=== PATIENT | female | born 1955 | race Caucasian/White ===

== ENCOUNTER 2021-04-12 14:37 | Inpatient (IN) ==
[2021-04-12] MEDS ORDERED: Morphine 2 MG/ML SYRINGE IV PRN (19:49)
[2021-04-12] MEDS: Morphine 2 MG/ML SYRINGE IV PRN ×2 (20:10→22:06)
[2021-04-12 20:37] LABS: ABS Eosinophils 0.1 10^3/ul (0-0.6); ABS Monocytes 0.6 10^3/ul (0-0.8); ABS Neutrophils 5.6 10^3/ul (1.5-7.7); Eosinophil % 1.5 %; Hematocrit 41 % (35-47); Lymphocyte % 13.7 %; Mean Corpuscular HGB Conc 34 g/dL (31-36); Mean Corpuscular Hemoglobin 32 pg (27-31); Mean Corpuscular Volume 94 fL (80-97); Mean Platelet Volume 7.7 fL (7.4-10.4); Nucleated Red Blood Cells % 0.1; Platelet Count 148 10^3/uL (150-450); Red Blood Count 4.38 10^6 /uL (3.70-4.87); Red Cell Distribution Width 13 % (10-15); White Blood Count 7.3 10^3/uL (3.5-10.8)
[2021-04-12] MEDS: Ondansetron 4 mg VIAL 2 MG/ML 2 ml VIAL IV PRN (20:54)
[2021-04-12 21:08] LABS: Albumin 4.2 g/dL (3.2-5.2); Albumin/Globulin Ratio 1.7 (1-3); Calcium 9.2 mg/dL (8.6-10.3); Globulin 2.5 g/dL (2-4); Potassium 3.8 mmol/L (3.5-5.0); Total Bilirubin 0.6 mg/dL (0.2-1.0); Total Protein 6.7 g/dL (6.4-8.9); eGFR CKD-EPI 94.7 (>60)
[2021-04-12] MEDS: Cholecalciferol (VIT D3) 1,000 unit TAB PO SCH (21:19)
[2021-04-12] MEDS ORDERED: Heparin 5000 UNITS/ML 1 mL VIAL SUBCUT ONE (22:20)
[2021-04-13 01:25] LABS: Rapid COVID-19 Molecular Undetected (Undetected)
[2021-04-13 01:36] LABS: Urine Appearance Clear; Urine Bilirubin Negative (Negative); Urine Blood 3+ (Negative); Urine Color Yellow; Urine Glucose Negative (Negative); Urine Ketones Negative (Negative); Urine Nitrite Negative (Negative); Urine Protein Negative (Negative); Urine Specific Gravity 1.012 (1.002-1.030); Urine Urobilinogen Negative (Negative)
[2021-04-13 01:41] LABS: Urine Bacteria Absent (Absent); Urine Red Blood Cell 3+(>10/hpf) (Absent); Urine White Blood Cell Trace(0-5/hpf) (Absent)
[2021-04-13 05:50] LABS: ABS Eosinophils 0.2 10^3/ul (0-0.6); ABS Lymphocytes 0.8 10^3/ul (1.0-4.8); ABS Monocytes 0.5 10^3/ul (0-0.8); ABS Neutrophils 5.3 10^3/ul (1.5-7.7); Eosinophil % 3.1 %; Hematocrit 42 % (35-47); Hemoglobin 14.2 g/dL (12.0-16.0); Lymphocyte % 12.1 %; Mean Corpuscular HGB Conc 34 g/dL (31-36); Mean Corpuscular Hemoglobin 32 pg (27-31); Mean Corpuscular Volume 94 fL (80-97); Mean Platelet Volume 8.2 fL (7.4-10.4); Platelet Count 149 10^3/uL (150-450); Red Blood Count 4.44 10^6 /uL (3.70-4.87); Red Cell Distribution Width 13 % (10-15); White Blood Count 6.9 10^3/uL (3.5-10.8)
[2021-04-13] MEDS: LEVOTHYROXINE 125 MCG PO SCH ×2 (05:54→09:15)
[2021-04-13 05:58] LABS: INR 1.06 (0.86-1.15)
[2021-04-13 06:07] LABS: Calcium 9.2 mg/dL (8.6-10.3); Potassium 3.2 mmol/L (3.5-5.0); eGFR CKD-EPI 94.7 (>60)
[2021-04-13] MEDS ORDERED: Heparin 5000 UNITS/ML 1 mL VIAL SUBCUT ONE (07:00)
[2021-04-13] MEDS: Morphine 2 MG/ML SYRINGE IV PRN ×3 (07:05→13:16)
[2021-04-13] MEDS: Ondansetron 4 mg VIAL 2 MG/ML 2 ml VIAL IV PRN ×2 (07:06→13:16)
[2021-04-13] MEDS: Cholecalciferol (VIT D3) 1,000 unit TAB PO SCH ×2 (07:21→08:41)
[2021-04-13] MEDS ORDERED: Senna TAB 8.6 mg TAB PO PRN (08:22)
[2021-04-13] MEDS: Magnesium Hydroxide LIQ 30 ML UDC PO SCH ×2 (08:41→22:57)
[2021-04-13] MEDS ORDERED: Lactated Ringers 1000 ml BAG 1,000 ML IV SCH ×2 (09:00→11:00)
[2021-04-13] MEDS: KCL 10 MEQ/50 ML IVPREMIX 10 MEQ/50 ML BAG IV SCH ×3 (09:15→12:20)
[2021-04-13] MEDS ORDERED: ceFAZolin 2 GM PREMIX 2 GM/50 ML BAG IVPB ONE ×2 (10:00→16:30)
[2021-04-13] MEDS ORDERED: Buffered Lidocaine 1% SYRIN 1 ml INTRADERM ONE (10:41)
[2021-04-13 13:21] LABS: Vitamin D Total 25(OH) 33.7 ng/mL (20-50)
[2021-04-13] MEDS ORDERED: Morphine 10 MG/ML VIAL (1 ml) IV PRN (13:39)
[2021-04-13] MEDS ORDERED: Morphine 2 MG/ML SYRINGE ONE (14:02)
[2021-04-13] MEDS ORDERED: ceFAZolin 2 GM PREMIX 2 GM/50 ML BAG ONE (15:29)
[2021-04-13] MEDS ORDERED: Rocuronium 50 mg VIAL 10 mg/ml 5 ml VIAL (50 mg) ONE (18:10)
[2021-04-13] MEDS ORDERED: Midazolam 2 mg/2 ml VIAL 1 mg/ml 2 ml VIAL (2 mg) ONE (18:10)
[2021-04-13] MEDS ORDERED: Propofol 10 MG/ML 20 ML BTL ONE (18:11)
[2021-04-13] MEDS ORDERED: Lidocaine 2% PF 5 ML VIAL ONE (18:11)
[2021-04-13] MEDS ORDERED: Calcium CHLORIDE 10% SYRINGE 1 GM/10 ML ONE (19:36)
[2021-04-13] MEDS ORDERED: LACTATED RINGERS 1000 ML BAG IV SCH (23:00)
[2021-04-14] MEDS: ceFAZolin 1 GM Q8H (ADVAN) IVPB SCH ×3 (02:31→21:04)
[2021-04-14] MEDS: Ondansetron 4 mg VIAL 2 MG/ML 2 ml VIAL IV PRN ×3 (02:33→14:49)
[2021-04-14 05:52] LABS: ABS Lymphocytes 0.4 10^3/ul (1.0-4.8); ABS Monocytes 1.4 10^3/ul (0-0.8); ABS Neutrophils 15.8 10^3/ul (1.5-7.7); Hematocrit 42 % (35-47); Hemoglobin 13.7 g/dL (12.0-16.0); Lymphocyte % 2.4 %; Mean Corpuscular HGB Conc 33 g/dL (31-36); Mean Corpuscular Hemoglobin 32 pg (27-31); Mean Corpuscular Volume 96 fL (80-97); Mean Platelet Volume 8.2 fL (7.4-10.4); Nucleated Red Blood Cells % 0.1; Platelet Count 116 10^3/uL (150-450); Red Blood Count 4.33 10^6 /uL (3.70-4.87); Red Cell Distribution Width 12 % (10-15); White Blood Count 17.6 10^3/uL (3.5-10.8)
[2021-04-14 06:07] LABS: Calcium 9.7 mg/dL (8.6-10.3); Magnesium 1.8 mg/dL (1.9-2.7); Potassium 4.5 mmol/L (3.5-5.0)
[2021-04-14] MEDS: LEVOTHYROXINE 125 MCG PO SCH (06:07)
[2021-04-14 06:12] LABS: eGFR CKD-EPI 35.7 (>60)
[2021-04-14] MEDS ORDERED: Lactated Ringers 1000 ml BAG 1,000 ML IV ONE ×2 (06:56→06:57)
[2021-04-14] MEDS ORDERED: Magnesium Sulfate IV 3 GM in NS 0.9% 100 ml BAG 100 ML IVPB ONE (06:58)
[2021-04-14] MEDS: Cholecalciferol (VIT D3) 1,000 unit TAB PO SCH (09:34)
[2021-04-14] MEDS: Magnesium Hydroxide LIQ 30 ML UDC PO SCH ×2 (09:39→21:05)
[2021-04-14] MEDS ORDERED: HYDROcodone/ACETAMIN 5/325 mg TAB PO PRN (10:22)
[2021-04-14 14:51] LABS: Calcium 9.1 mg/dL (8.6-10.3); Magnesium 2.8 mg/dL (1.9-2.7); Potassium 3.9 mmol/L (3.5-5.0); eGFR CKD-EPI 28.6 (>60)
[2021-04-14] MEDS ORDERED: Scopolamine PATCH Remove NOTE PATCH OFF ONE (17:41)
[2021-04-14 19:20] LABS: Urine Appearance Cloudy; Urine Bilirubin Negative (Negative); Urine Blood 1+ (Negative); Urine Color Yellow; Urine Glucose Negative (Negative); Urine Ketones Negative (Negative); Urine Nitrite Negative (Negative); Urine Protein Negative (Negative); Urine Specific Gravity 1.013 (1.002-1.030); Urine Urobilinogen Negative (Negative)
[2021-04-14 19:33] LABS: Urine Bacteria Absent (Absent); Urine Red Blood Cell Trace(0-2/hpf) (Absent); Urine Squamous Epithelial Cell Present (Absent); Urine White Blood Cell Trace(0-5/hpf) (Absent)
[2021-04-14] MEDS: Senna TAB 8.6 mg TAB PO SCH (21:06)
[2021-04-15 05:34] LABS: ABS Lymphocytes 0.5 10^3/ul (1.0-4.8); ABS Monocytes 0.3 10^3/ul (0-0.8); ABS Neutrophils 6.5 10^3/ul (1.5-7.7); Eosinophil % 0.6 %; Hematocrit 35 % (35-47); Hemoglobin 11.9 g/dL (12.0-16.0); Lymphocyte % 7.4 %; Mean Corpuscular HGB Conc 34 g/dL (31-36); Mean Corpuscular Hemoglobin 32 pg (27-31); Mean Corpuscular Volume 95 fL (80-97); Mean Platelet Volume 9.1 fL (7.4-10.4); Nucleated Red Blood Cells % 0.1; Platelet Count 86 10^3/uL (150-450); Red Blood Count 3.71 10^6 /uL (3.70-4.87); Red Cell Distribution Width 13 % (10-15); White Blood Count 7.4 10^3/uL (3.5-10.8)
[2021-04-15 05:52] LABS: Calcium 8.6 mg/dL (8.6-10.3); Potassium 3.6 mmol/L (3.5-5.0); eGFR CKD-EPI 26.7 (>60)
[2021-04-15] MEDS: LEVOTHYROXINE 125 MCG PO SCH (06:22)
[2021-04-15] MEDS ORDERED: Lactated Ringers 500 ml BAG 500 ML IV ONE (06:22)
[2021-04-15] MEDS: Ondansetron 4 mg VIAL 2 MG/ML 2 ml VIAL IV PRN ×2 (06:37→20:05)
[2021-04-15] MEDS ORDERED: Lactated Ringers 1000 ml BAG 1,000 ML IV SCH ×2 (07:00→15:00)
[2021-04-15 07:09] LABS: Folate 17.43 ng/mL (5.90-24.80)
[2021-04-15] MEDS: Cholecalciferol (VIT D3) 1,000 unit TAB PO SCH (08:15)
[2021-04-15] MEDS: Polyethylene Glycol 3350 17 GM PACKET PO SCH (08:16)
[2021-04-15] MEDS: Magnesium Hydroxide LIQ 30 ML UDC PO SCH ×2 (08:16→21:44)
[2021-04-15] MEDS: Calcium Citrate 200 mg TAB PO SCH ×2 (08:17→21:44)
[2021-04-15 14:25] LABS: Calcium 8.3 mg/dL (8.6-10.3); Potassium 3.8 mmol/L (3.5-5.0)
[2021-04-15] MEDS: Senna TAB 8.6 mg TAB PO SCH (21:44)
[2021-04-16 04:46] LABS: ABS Eosinophils 0.1 10^3/ul (0-0.6); ABS Lymphocytes 0.4 10^3/ul (1.0-4.8); ABS Monocytes 0.3 10^3/ul (0-0.8); ABS Neutrophils 4.3 10^3/ul (1.5-7.7); Eosinophil % 1.3 %; Hematocrit 30 % (35-47); Hemoglobin 10.3 g/dL (12.0-16.0); Lymphocyte % 7.2 %; Mean Corpuscular HGB Conc 34 g/dL (31-36); Mean Corpuscular Hemoglobin 32 pg (27-31); Mean Corpuscular Volume 94 fL (80-97); Mean Platelet Volume 8.5 fL (7.4-10.4); Nucleated Red Blood Cells % 0.1; Platelet Count 54 10^3/uL (150-450); Red Blood Count 3.22 10^6 /uL (3.70-4.87); Red Cell Distribution Width 13 % (10-15); White Blood Count 5.1 10^3/uL (3.5-10.8)
[2021-04-16 05:00] LABS: Anion Gap 4 mmol/L (2-11); Blood Urea Nitrogen 41 mg/dL (6-24); CO2 Carbon Dioxide 28 mmol/L (22-32); Calcium 8.8 mg/dL (8.6-10.3); Chloride 104 mmol/L (101-111); Glucose 98 mg/dL (70-100); Magnesium 2.4 mg/dL (1.9-2.7); Potassium 3.8 mmol/L (3.5-5.0); Sodium 136 mmol/L (135-145); eGFR CKD-EPI 37.7 (>60)
[2021-04-16] MEDS: LEVOTHYROXINE 125 MCG PO SCH (06:39)
[2021-04-16] MEDS ORDERED: Lactated Ringers 1000 ml BAG 1,000 ML IV ONE ×2 (08:02→18:30)
[2021-04-16] MEDS: Ondansetron ODT 4 mg TAB 4 MG TAB SL SCH ×4 (08:29→21:05)
[2021-04-16] MEDS: Cholecalciferol (VIT D3) 1,000 unit TAB PO SCH (08:29)
[2021-04-16] MEDS: Calcium Citrate 200 mg TAB PO SCH ×2 (08:29→21:05)
[2021-04-16] MEDS: Magnesium Hydroxide LIQ 30 ML UDC PO SCH (08:30)
[2021-04-16] MEDS: Polyethylene Glycol 3350 17 GM PACKET PO SCH (08:30)
[2021-04-16] MEDS ORDERED: Scopolamine PATCH Remove NOTE PATCH OFF SCH (10:00)
[2021-04-16 11:13] LABS: Albumin 3.1 g/dL (3.2-5.2); Albumin/Globulin Ratio 1.6 (1-3); Alkaline Phosphatase 138 U/L (35-149); Globulin 1.9 g/dL (2-4); Indirect Bilirubin 0.7 mg/dL (0.3-1.0)
[2021-04-16 11:32] LABS: ALT > 4500 U/L (7-52); AST 9692 U/L (13-39)
[2021-04-16 11:55] LABS: Platelet Count 54 10^3/ul (150-450)
[2021-04-16 12:02] LABS: Activated Partial Thrombo Time 28.3 seconds (26.0-38.0); Fibrinogen 210.4 mg/dL (110.8-404.3); INR 4.76 (0.86-1.15)
[2021-04-16 12:29] LABS: Schistocytes ABSENT
[2021-04-16] MEDS ORDERED: Lactated Ringers 1000 ml BAG 1,000 ML IV SCH ×2 (14:00→17:34)
[2021-04-16] MEDS ORDERED: ACETYLCYSTEINE IV ONE ×3 (14:00→19:00)
[2021-04-16] MEDS ORDERED: D5W IV ONE ×3 (14:00→19:00)
[2021-04-16 20:10] LABS: Albumin 2.8 g/dL (3.2-5.2); Albumin/Globulin Ratio 1.6 (1-3); Alkaline Phosphatase 163 U/L (35-149); Anion Gap 5 mmol/L (2-11); Blood Urea Nitrogen 38 mg/dL (6-24); CO2 Carbon Dioxide 29 mmol/L (22-32); Calcium 8.8 mg/dL (8.6-10.3); Chloride 101 mmol/L (101-111); Globulin 1.8 g/dL (2-4); Glucose 165 mg/dL (70-100); Potassium 3.4 mmol/L (3.5-5.0); Sodium 135 mmol/L (135-145); Total Protein 4.6 g/dL (6.4-8.9); eGFR CKD-EPI 45.9 (>60)
[2021-04-16 20:11] LABS: INR 4.64 (0.86-1.15)
[2021-04-16 20:35] LABS: ALT > 4500 U/L (7-52); AST 6970 U/L (13-39)
[2021-04-16] MEDS: Senna TAB 8.6 mg TAB PO SCH (21:05)
[2021-04-16] MEDS ORDERED: Phytonadione IV (Adult) 10 MG in NS 0.9% 50 ML 50 ML IV ONE (21:24)
[2021-04-16] MEDS ORDERED: Phytonadione 10 mg in 50 mL NS over 30 min IV ONE (22:00)
[2021-04-16] MEDS: Lactulose 30 ml UDC PO ONE ×2 (22:48→22:53)
[2021-04-17 02:54] LABS: Hepatitis B Surface Antigen Nonreactive (Nonreactive)
[2021-04-17 02:59] LABS: Hepatitis A Ab IgM Negative (Negative); Hepatitis B Core IgM Nonreactive (Nonreactive)
[2021-04-17 03:11] LABS: Hepatitis C Antibody Negative (Negative)
[2021-04-17] MEDS: Ondansetron ODT 4 mg TAB 4 MG TAB SL SCH ×4 (03:26→21:10)
[2021-04-17 05:08] LABS: ABS Eosinophils 0.1 10^3/ul (0-0.6); ABS Lymphocytes 0.4 10^3/ul (1.0-4.8); ABS Monocytes 0.3 10^3/ul (0-0.8); ABS Neutrophils 3.3 10^3/ul (1.5-7.7); Eosinophil % 2.1 %; Hematocrit 29 % (35-47); Hemoglobin 9.9 g/dL (12.0-16.0); Lymphocyte % 9.5 %; Mean Corpuscular HGB Conc 34 g/dL (31-36); Mean Corpuscular Hemoglobin 32 pg (27-31); Mean Corpuscular Volume 93 fL (80-97); Mean Platelet Volume 9.2 fL (7.4-10.4); Platelet Count 62 10^3/uL (150-450); Red Blood Count 3.13 10^6 /uL (3.70-4.87); Red Cell Distribution Width 13 % (10-15)
[2021-04-17 05:13] LABS: INR 3.38 (0.86-1.15)
[2021-04-17 05:21] LABS: Albumin 2.7 g/dL (3.2-5.2); Albumin/Globulin Ratio 1.6 (1-3); Calcium 8.9 mg/dL (8.6-10.3); Globulin 1.7 g/dL (2-4); Magnesium 1.8 mg/dL (1.9-2.7); Phosphorus 1.8 mg/dL (2.5-5.0); Total Bilirubin 1.1 mg/dL (0.2-1.0); Total Protein 4.4 g/dL (6.4-8.9); eGFR CKD-EPI 52.8 (>60)
[2021-04-17] MEDS ORDERED: KCL 20 MEQ/100 ML IVPREMIX 20 MEQ/100 ML BAG IV ONE (07:21)
[2021-04-17] MEDS ORDERED: Magnesium Sulfate 2 gm BAG 2 GM/50 ML BAG IVPB ONE (07:21)
[2021-04-17] MEDS ORDERED: HYDROmorphone 0.5 MG/0.5 ML SYRINGE IV PRN (09:04)
[2021-04-17] MEDS: Polyethylene Glycol 3350 17 GM PACKET PO SCH (09:58)
[2021-04-17] MEDS: Potassium Chlor 20 meq TAB.ER PO SCH ×2 (09:59→17:27)
[2021-04-17] MEDS: Calcium Citrate 200 mg TAB PO SCH ×2 (10:00→21:09)
[2021-04-17] MEDS ORDERED: D5W IV ONE (13:30)
[2021-04-17] MEDS ORDERED: ACETYLCYSTEINE IV ONE (13:30)
[2021-04-17 18:27] LABS: INR 1.88 (0.86-1.15)
[2021-04-17 18:55] LABS: Albumin 3.2 g/dL (3.2-5.2); Calcium 9.3 mg/dL (8.6-10.3); Potassium 3.1 mmol/L (3.5-5.0); Total Protein 5.2 g/dL (6.4-8.9); eGFR CKD-EPI 56.9 (>60)
[2021-04-17 18:56] LABS: Albumin/Globulin Ratio 1.6 (1-3); Total Bilirubin 1.3 mg/dL (0.2-1.0)
[2021-04-17 19:25] LABS: Urine Appearance Cloudy; Urine Bilirubin Negative (Negative); Urine Blood 2+ (Negative); Urine Color Yellow; Urine Glucose Negative (Negative); Urine Ketones Negative (Negative); Urine Nitrite Negative (Negative); Urine Protein 1+(30 mg/dL) (Negative); Urine Specific Gravity 1.011 (1.002-1.030); Urine Urobilinogen Negative (Negative)
[2021-04-17 19:35] LABS: Urine Bacteria Absent (Absent); Urine Red Blood Cell Trace(0-2/hpf) (Absent); Urine Squamous Epithelial Cell Present (Absent); Urine White Blood Cell Absent (Absent)
[2021-04-17] MEDS: Senna TAB 8.6 mg TAB PO SCH (21:09)
[2021-04-18] MEDS: Ondansetron ODT 4 mg TAB 4 MG TAB SL SCH ×4 (03:00→20:07)
[2021-04-18 05:58] LABS: Hematocrit 29 % (35-47); Mean Corpuscular HGB Conc 35 g/dL (31-36); Mean Corpuscular Hemoglobin 32 pg (27-31); Mean Corpuscular Volume 93 fL (80-97); Mean Platelet Volume 8.9 fL (7.4-10.4); Platelet Count 84 10^3/uL (150-450); Red Blood Count 3.11 10^6 /uL (3.70-4.87); Red Cell Distribution Width 13 % (10-15); White Blood Count 3.6 10^3/uL (3.5-10.8)
[2021-04-18 06:06] LABS: INR 1.95 (0.86-1.15)
[2021-04-18 06:13] LABS: Albumin 2.6 g/dL (3.2-5.2); Albumin/Globulin Ratio 1.4 (1-3); Calcium 8.5 mg/dL (8.6-10.3); Globulin 1.8 g/dL (2-4); Magnesium 1.7 mg/dL (1.9-2.7); Potassium 2.8 mmol/L (3.5-5.0); Total Protein 4.4 g/dL (6.4-8.9)
[2021-04-18] MEDS ORDERED: Magnesium Sulfate 2 gm BAG 2 GM/50 ML BAG IVPB ONE (08:10)
[2021-04-18] MEDS ORDERED: ACETYLCYSTEINE IV ONE (09:00)
[2021-04-18] MEDS ORDERED: D5W IV ONE (09:00)
[2021-04-18] MEDS: Polyethylene Glycol 3350 17 GM PACKET PO SCH (09:14)
[2021-04-18] MEDS: Calcium Citrate 200 mg TAB PO SCH ×2 (09:14→20:05)
[2021-04-18] MEDS: KCL 20 MEQ/100 ML IVPREMIX 20 MEQ/100 ML BAG IV SCH ×2 (09:16→14:56)
[2021-04-18] MEDS: Potassium Chlor 20 meq TAB.ER PO SCH ×2 (09:17→20:18)
[2021-04-18 18:44] LABS: Calcium 8.5 mg/dL (8.6-10.3); Potassium 3.3 mmol/L (3.5-5.0); Total Bilirubin 1.2 mg/dL (0.2-1.0)
[2021-04-18 18:50] LABS: Albumin/Globulin Ratio 1.4 (1-3); Globulin 2.1 g/dL (2-4); Total Protein 5.1 g/dL (6.4-8.9)
[2021-04-18] MEDS: Lactulose 30 ml UDC PO SCH (20:01)
[2021-04-18] MEDS: Senna TAB 8.6 mg TAB PO SCH (20:03)
[2021-04-18] MEDS ORDERED: Potassium Chloride LIQUID 20 MEQ/15 ML LIQUID PO ONE (20:18)
[2021-04-19] MEDS: Ondansetron ODT 4 mg TAB 4 MG TAB SL SCH ×4 (03:24→21:05)
[2021-04-19 05:31] LABS: ABS Eosinophils 0.2 10^3/ul (0-0.6); ABS Lymphocytes 0.6 10^3/ul (1.0-4.8); ABS Monocytes 0.5 10^3/ul (0-0.8); ABS Neutrophils 2.8 10^3/ul (1.5-7.7); Eosinophil % 4.1 %; Hematocrit 31 % (35-47); Hemoglobin 10.7 g/dL (12.0-16.0); Lymphocyte % 14.9 %; Mean Corpuscular HGB Conc 35 g/dL (31-36); Mean Corpuscular Hemoglobin 33 pg (27-31); Mean Corpuscular Volume 94 fL (80-97); Mean Platelet Volume 8.7 fL (7.4-10.4); Nucleated Red Blood Cells % 0.1; Platelet Count 104 10^3/uL (150-450); Red Blood Count 3.27 10^6 /uL (3.70-4.87); Red Cell Distribution Width 12 % (10-15); White Blood Count 4.1 10^3/uL (3.5-10.8)
[2021-04-19 05:38] LABS: INR 1.65 (0.86-1.15)
[2021-04-19 05:47] LABS: Albumin 2.8 g/dL (3.2-5.2); Albumin/Globulin Ratio 1.4 (1-3); Calcium 8.5 mg/dL (8.6-10.3); Magnesium 1.7 mg/dL (1.9-2.7); Phosphorus 1.2 mg/dL (2.5-5.0); Potassium 3.4 mmol/L (3.5-5.0); Total Bilirubin 1.3 mg/dL (0.2-1.0); Total Protein 4.8 g/dL (6.4-8.9); eGFR CKD-EPI 65.7 (>60)
[2021-04-19] MEDS: Polyethylene Glycol 3350 17 GM PACKET PO SCH (08:04)
[2021-04-19] MEDS: Lactulose 30 ml UDC PO SCH ×3 (08:04→21:05)
[2021-04-19] MEDS: Calcium Citrate 200 mg TAB PO SCH ×2 (08:04→21:01)
[2021-04-19] MEDS ORDERED: Magnesium Sulfate 2 gm BAG 2 GM/50 ML BAG IVPB ONE (08:40)
[2021-04-19] MEDS ORDERED: D5W IV ONE (09:00)
[2021-04-19] MEDS ORDERED: ACETYLCYSTEINE IV ONE (09:00)
[2021-04-19] MEDS: Potassium Chlor 20 meq TAB.ER PO SCH ×2 (10:37→13:09)
[2021-04-19] MEDS: KCL 20 MEQ/100 ML IVPREMIX 20 MEQ/100 ML BAG IV ONE ×2 (12:13→13:03)
[2021-04-19] MEDS: Senna TAB 8.6 mg TAB PO SCH (20:59)
[2021-04-20] MEDS: Ondansetron ODT 4 mg TAB 4 MG TAB SL SCH ×2 (03:04→08:47)
[2021-04-20 06:57] LABS: Hematocrit 31 % (35-47); Hemoglobin 10.8 g/dL (12.0-16.0); Mean Corpuscular HGB Conc 35 g/dL (31-36); Mean Corpuscular Hemoglobin 33 pg (27-31); Mean Corpuscular Volume 95 fL (80-97); Mean Platelet Volume 8.9 fL (7.4-10.4); Platelet Count 123 10^3/uL (150-450); Red Blood Count 3.28 10^6 /uL (3.70-4.87); Red Cell Distribution Width 13 % (10-15); White Blood Count 9.7 10^3/uL (3.5-10.8)
[2021-04-20 07:15] LABS: Albumin 2.9 g/dL (3.2-5.2); Albumin/Globulin Ratio 1.3 (1-3); Calcium 9.1 mg/dL (8.6-10.3); Globulin 2.2 g/dL (2-4); Magnesium 1.6 mg/dL (1.9-2.7); Potassium 3.5 mmol/L (3.5-5.0); Total Bilirubin 1.4 mg/dL (0.2-1.0); Total Protein 5.1 g/dL (6.4-8.9); eGFR CKD-EPI 65.7 (>60)
[2021-04-20] MEDS ORDERED: Magnesium Sulfate 2 gm BAG 2 GM/50 ML BAG IVPB ONE (07:32)
[2021-04-20] MEDS: Polyethylene Glycol 3350 17 GM PACKET PO SCH (07:42)
[2021-04-20] MEDS ORDERED: Potassium Phosphate IV 15 MMOLE in NS 0.9% 250 ml 250 ML IVPB ONE ×2 (08:00→14:00)
[2021-04-20] MEDS: Calcium Citrate 200 mg TAB PO SCH (08:47)
[2021-04-20] MEDS: Lactulose 30 ml UDC PO SCH (08:47)
[2021-04-20] MEDS ORDERED: Potassium Chlor 20 meq TAB.ER PO SCH (09:00)
[2021-04-20 11:25] VITALS: BP 136/76
[2021-04-20 13:30] LABS: Phosphorus 2.2 mg/dL (2.5-5.0)
[2021-04-21] MEDS ORDERED: Cholecalciferol (VIT D3) 1,000 unit TAB PO SCH (09:00)
== END 2021-04-20 12:55 | DRG 521 ==
LOC: SUATTDRO 18:14 → SSU 18:14 → PMRU 04-20 12:42 → UNDODISIN 04-20 12:55
PROVIDERS: ADMIT Internal Medicine; ATTEND Internal Medicine

== ENCOUNTER 2021-04-20 10:40 | Inpatient (IN) ==
[2021-04-20] MEDS ORDERED: Ondansetron ODT 4 mg TAB 4 MG TAB PO PRN (14:42)
[2021-04-20] MEDS ORDERED: Lactulose 30 ml UDC PO ONE (18:00)
[2021-04-20] MEDS: Calcium Citrate 200 mg TAB PO SCH (20:08)
[2021-04-21 06:22] LABS: ABS Eosinophils 0.3 10^3/ul (0-0.6); ABS Lymphocytes 0.9 10^3/ul (1.0-4.8); ABS Monocytes 1.1 10^3/ul (0-0.8); ABS Neutrophils 7.4 10^3/ul (1.5-7.7); Eosinophil % 3.4 %; Hematocrit 31 % (35-47); Hemoglobin 10.7 g/dL (12.0-16.0); Lymphocyte % 9.1 %; Mean Corpuscular HGB Conc 34 g/dL (31-36); Mean Corpuscular Hemoglobin 32 pg (27-31); Mean Corpuscular Volume 94 fL (80-97); Mean Platelet Volume 8.5 fL (7.4-10.4); Platelet Count 149 10^3/uL (150-450); Red Blood Count 3.31 10^6 /uL (3.70-4.87); Red Cell Distribution Width 13 % (10-15); White Blood Count 9.8 10^3/uL (3.5-10.8)
[2021-04-21 06:30] LABS: INR 1.39 (0.86-1.15)
[2021-04-21 06:53] LABS: Albumin 2.8 g/dL (3.2-5.2); Albumin/Globulin Ratio 1.1 (1-3); Calcium 8.6 mg/dL (8.6-10.3); Globulin 2.5 g/dL (2-4); Magnesium 1.7 mg/dL (1.9-2.7); Phosphorus 3.7 mg/dL (2.5-5.0); Potassium 3.6 mmol/L (3.5-5.0); Total Bilirubin 1.4 mg/dL (0.2-1.0); Total Protein 5.3 g/dL (6.4-8.9); eGFR CKD-EPI 65.7 (>60)
[2021-04-21] MEDS: Calcium Citrate 200 mg TAB PO SCH ×2 (09:01→21:16)
[2021-04-21] MEDS ORDERED: Magnesium Sulfate IV 3 GM in NS 0.9% 100 ml BAG 100 ML IVPB ONE (11:27)
[2021-04-21] MEDS: Cholecalciferol (VIT D3) 1,000 unit TAB PO SCH (15:40)
[2021-04-22 06:10] LABS: Albumin 2.9 g/dL (3.2-5.2); Calcium 8.8 mg/dL (8.6-10.3); Magnesium 1.9 mg/dL (1.9-2.7); Potassium 3.6 mmol/L (3.5-5.0); Total Bilirubin 1.1 mg/dL (0.2-1.0)
[2021-04-22 06:16] LABS: Albumin/Globulin Ratio 1.2 (1-3); Globulin 2.5 g/dL (2-4); Total Protein 5.4 g/dL (6.4-8.9); eGFR CKD-EPI 67.4 (>60)
[2021-04-22] MEDS: Cholecalciferol (VIT D3) 1,000 unit TAB PO SCH (08:59)
[2021-04-22] MEDS: Calcium Citrate 200 mg TAB PO SCH ×2 (09:00→20:48)
[2021-04-22 11:18] LABS: Urine Appearance Turbid; Urine Bilirubin Negative (Negative); Urine Blood 3+ (Negative); Urine Color Amber; Urine Glucose Negative (Negative); Urine Ketones Negative (Negative); Urine Nitrite Positive (Negative); Urine Protein 3+(>=500 mg/dL) (Negative); Urine Urobilinogen Negative (Negative)
[2021-04-22 11:23] LABS: Urine Bacteria 1+ (Absent); Urine Red Blood Cell 3+(>10/hpf) (Absent); Urine White Blood Cell 3+(>20/hpf) (Absent)
[2021-04-22] MEDS: cefTRIAXone 1 gm/50 mL NS BAG 1 GM/50 ML BAG IVPB SCH (16:13)
[2021-04-23] MEDS: Cholecalciferol (VIT D3) 1,000 unit TAB PO SCH (08:13)
[2021-04-23] MEDS: Calcium Citrate 200 mg TAB PO SCH ×2 (08:13→20:55)
[2021-04-23] MEDS: cefTRIAXone 1 gm/50 mL NS BAG 1 GM/50 ML BAG IVPB SCH (17:10)
[2021-04-23] MEDS: Senna TAB 8.6 mg TAB PO PRN (18:23)
[2021-04-23] MEDS: Magnesium Hydroxide LIQ 30 ML UDC PO PRN (18:23)
[2021-04-24 08:05] LABS: Albumin 2.9 g/dL (3.2-5.2); Albumin/Globulin Ratio 1.1 (1-3); Calcium 8.8 mg/dL (8.6-10.3); Globulin 2.7 g/dL (2-4); Magnesium 1.8 mg/dL (1.9-2.7); Potassium 3.7 mmol/L (3.5-5.0); Total Bilirubin 0.7 mg/dL (0.2-1.0); Total Protein 5.6 g/dL (6.4-8.9); eGFR CKD-EPI 79.5 (>60)
[2021-04-24] MEDS: Cholecalciferol (VIT D3) 1,000 unit TAB PO SCH (08:46)
[2021-04-24] MEDS: Magnesium Hydroxide LIQ 30 ML UDC PO PRN (08:46)
[2021-04-24] MEDS: Senna TAB 8.6 mg TAB PO PRN (08:47)
[2021-04-24] MEDS: Calcium Citrate 200 mg TAB PO SCH ×2 (08:49→20:04)
[2021-04-24] MEDS ORDERED: Lactulose 30 ml UDC PO PRN (14:18)
[2021-04-24] MEDS: cefTRIAXone 1 gm/50 mL NS BAG 1 GM/50 ML BAG IVPB SCH (16:09)
[2021-04-25 06:27] VITALS: BP 125/80
[2021-04-25] MEDS: Calcium Citrate 200 mg TAB PO SCH (08:17)
[2021-04-25] MEDS: Cholecalciferol (VIT D3) 1,000 unit TAB PO SCH (08:17)
== END 2021-04-25 11:10 | disposition home or self-care (01) | DRG 559 ==
LOC: PMRU 12:55
PROVIDERS: ADMIT Physical Medicine & Rehabilitation; ATTEND Physical Medicine & Rehabilitation